=== PATIENT | female | born 1960 | race Caucasian/White ===

== ENCOUNTER 2019-04-04 16:04 | Observation (INO) | payer BC ==
--- NOTE | 2019-04-04 17:45 | ED ---
Abdominal Pain/Female - HPI Summary HPI Summary: Patient complains of right upper quadrant pain and nausea after eating. Patient has history of recurrent right upper quadrant after eating since January, however pain has been constant over the past 3 days. Sent by PCP to ED for further evaluation. Ultrasound 2 days ago positive for cholelithiasis. Has scheduled appointment for evaluation by surgery this coming Sunday. Denies fever, cough, sore throat, CP, V/D, change in urine, change in BM, vaginal symptoms. - History of Current Complaint Chief Complaint: EDAbdPain Stated Complaint: GALLSTONES PER PT Time Seen by Provider: 04/04/19 17:44 Hx Obtained From: Patient Onset/Duration: Gradual Onset, Lasting Days Timing: Constant Severity Initially: Moderate Severity Currently: Moderate Pain Intensity: 7 Pain Scale Used: 0-10 Numeric Location: Discrete At: RUQ Radiates to: Back Character: Sharp, Dull Aggravating Factor(s): Food Alleviating Factor(s): Nothing Associated Signs and Symptoms: Positive: Decreased Appetite, Nausea Allergies/Adverse Reactions: Allergies Allergy/AdvReac Type Severity Reaction Status Date / Time No Known Allergies Allergy Verified 04/04/19 16:11 Home Medications: Home Medications Citalopram TAB* [CeleXA TAB*] 40 mg PO DAILY 04/04/19 [History Confirmed ] Omeprazole CAP (NF) [Prilosec CAP* 20 MG] 20 mg PO DAILY 04/04/19 [History Confirmed 04/04/19] PMH/Surg Hx/FS Hx/Imm Hx Endocrine/Hematology History: Denies: Hx Diabetes Cardiovascular History: Denies: Hx Hypertension, Hx Pacemaker/ICD History: Denies: Hx Renal Disease Musculoskeletal History: Denies: Hx Rheumatoid Arthritis, Hx Osteoporosis Sensory History: Denies: Hx Hearing Aid Opthamlomology History: Denies: Hx Legally Blind EENT History: Denies: Hx Deafness Neurological History: Denies: Hx Dementia Psychiatric History: Reports: Hx Panic Disorder - Cancer History Hx Chemotherapy: No Hx Radiation Therapy: No Infectious Disease History: No Infectious Disease History: Denies: Traveled Outside the [place] in Last 30 Days - Family History Known Family History: Positive: Non-Contributory - Social History Alcohol Use: Rare Substance Use Type: Reports: None Smoking Status (MU): Never Smoked Tobacco Review of Systems Constitutional: Negative Eyes: Negative ENT: Negative Cardiovascular: Negative Respiratory: Negative Positive: Abdominal Pain, Nausea Genitourinary: Negative Musculoskeletal: Negative Skin: Negative Neurological: Negative Psychological: Normal All Other Systems Reviewed And Are Negative: Yes Physical Exam - Summary Physical Exam Summary: Positive Prado's. Abdominal exam otherwise unremarkable. Triage Information Reviewed: Yes Vital Signs On Initial Exam: Initial Vitals Temp Pulse Resp BP Pulse Ox 98.2 F 88 18 144/79 95 04/04/19 16:08 04/04/19 16:08 04/04/19 16:08 04/04/19 16:08 04/04/19 16:08 Vital Signs Reviewed: Yes Appearance: Positive: Well-Appearing Skin: Positive: Warm Head/Face: Positive: Normal Head/Face Inspection Eyes: Positive: Normal Neck: Positive: Supple Respiratory/Lung Sounds: Positive: Clear to Auscultation Cardiovascular: Positive: Normal Abdomen Description: Positive: Other: Musculoskeletal: Positive: Normal Neurological: Positive: Normal Psychiatric: Positive: Normal AVPU Assessment: Alert - [place] Coma Scale Best Eye Response: 4 - Spontaneous Best Motor Response: 6 - Obeys Commands Best Verbal Response: 5 - Oriented Coma Scale Total: 15 Procedures - Sedation Patient Received Moderate/Deep Sedation with Procedure: No Diagnostics - Vital Signs Vital Signs Temp Pulse Resp BP Pulse Ox 04/04/19 16:08 98.2 F 88 18 144/79 95 - Laboratory Result Diagrams: 04/05/19 05:29 04/05/19 05:29 Lab Statement: Any lab studies that have been ordered have been reviewed, and results considered in the medical decision making process. Abdominal Pain Fem Course/Dx - Course Course Of Treatment: Patient complains of right upper quadrant pain and nausea after eating. Patient has history of recurrent right upper quadrant after eating since January, however pain has been constant over the past 3 days. Sent by PCP to ED for further evaluation. Ultrasound 2 days ago positive for cholelithiasis. Has scheduled appointment for evaluation by surgery this coming Sunday. Denies fever, cough, sore throat, CP, V/D, change in urine, change in BM, vaginal symptoms. Medical history is depression. Abdominal surgical history is none. Vital signs within normal limits. WBC 15.3. CRP 209. Total bili 1.1. Labs otherwise unremarkable. Ultrasound of gallbladder positive for cholecystitis. Patient evaluated and admitted by surgery Dr. Blakely - Diagnoses Provider Diagnoses: Cholecystitis Discharge ED - Sign-Out/Discharge Documenting (check all that apply): Patient Departure - Discharge Plan Condition: Stable Disposition: ADMITTED TO [facility] - Billing Disposition and Condition Condition: STABLE Disposition: Admitted to [facility] - Attestation Statements Provider Attestation: I was available for consult. This patient was seen by the [facility]. The patient was not presented to, seen by, or examined by me. Yakov Samuel MD
[2019-04-04] MEDS ORDERED: Morphine 4 MG/ML VIAL (1 ml) 4 MG/ML VIAL IV ONE (17:47)
[2019-04-04] MEDS ORDERED: NS 0.9% 1000 ML** 1,000 ML IV ONE (17:47)
[2019-04-04] MEDS ORDERED: Ondansetron INJ* 2 MG/ML VIAL IV ONE (17:47)
[2019-04-04 17:48] LABS: ABS Basophils 0.1 10^3/ul (0-0.2); ABS Eosinophils 0.3 10^3/ul (0-0.6); ABS Lymphocytes 1.3 10^3/ul (1.0-4.8); ABS Monocytes 1.3 10^3/ul (0-0.8); ABS Neutrophils 12.3 10^3/ul (1.5-7.7); Hematocrit 41 % (35-47); Hemoglobin 13.9 g/dL (12.0-16.0); Lymphocyte % 8.2 %; Mean Corpuscular HGB Conc 34 g/dL (31-36); Mean Corpuscular Hemoglobin 30 pg (27-31); Mean Corpuscular Volume 90 fL (80-97); Mean Platelet Volume 8.9 fL (7.4-10.4); Platelet Count 265 10^3/uL (150-450); Red Blood Count 4.57 10^6 /uL (3.70-4.87); Red Cell Distribution Width 14 % (10-15); White Blood Count 15.3 10^3/uL (3.5-10.8)
[2019-04-04 18:13] LABS: Albumin/Globulin Ratio 1.3 (1-3); BUN/Creatinine Ratio 20.5 (8-20); Calcium 9.4 mg/dL (8.6-10.3); EGFR African American 85.7 (>60); EGFR Non-African American 70.9 (>60); Globulin 3.1 g/dL (2-4); Potassium 4.4 mmol/L (3.5-5.0); Total Bilirubin 1.1 mg/dL (0.2-1.0); Total Protein 7.1 g/dL (6.4-8.9)
[2019-04-04 18:32] LABS: Urine Appearance Cloudy; Urine Bilirubin Negative (Negative); Urine Blood 1+ (Negative); Urine Color Yellow; Urine Glucose Negative (Negative); Urine Ketones Trace (Negative); Urine Nitrite Negative (Negative); Urine Protein Negative (Negative); Urine Specific Gravity 1.014 (1.010-1.030); Urine Urobilinogen Negative (Negative)
[2019-04-04 18:42] LABS: Urine Bacteria Absent (Absent); Urine Red Blood Cell Absent (Absent); Urine Squamous Epithelial Cell Present (Absent); Urine White Blood Cell Trace(0-5/hpf) (Absent)
[2019-04-04 20:01] LABS: C Reactive Protein 209.04 mg/L (<8.01)
--- NOTE | 2019-04-04 21:09 | HP ---
CC: Dr. Love Pompa; [facility] HISTORY AND PHYSICAL: DATE OF ADMISSION: 04/04/19. The patient was seen in the emergency room on 04/04/19. HISTORY OF PRESENT ILLNESS: I was contacted by the emergency room to evaluate Ms. Dickens, a 58- year-old female, who has recently been worked up for gallbladder disease, noted to have cholelithiasi s, who presented to the emergency room because of worsening right upper quadrant pain and nausea and fatigue. Repeat ultrasound as a workup in the emergency room showed cholelithiasis with gallbladder wall thickening up to 5 mm suggestive of cholecystitis. Labs were also done and the patient showed w rios count of 15.3 up from 9.6 earlier this week with an elevated CRP of 209. The patient states that she has had nausea with decreased appetite and fear of food for discomfort. She was placed on possibly an acid reducing agent this past week for her upper abdominal pain. She i s not sure of the name of it. She denies any fevers or chills. No change in bowel habits. No dysur ia, no dark colored urine. No light colored stools. PAST MEDICAL HISTORY: Anxiety. PAST SURGICAL HISTORY: None. MEDICATIONS: 1. Celexa. 2. Prilosec. ALLERGIES: No known drug allergies. FAMILY HISTORY: Noncontributory. SOCIAL HISTORY: She is a nonsmoker. She is a retired teacher. Lives with her significant other. REVIEW OF SYSTEMS: See above. No bleeding or clotting disorders. No endocrine disorders. PHYSICAL EXAMINATION GENERAL: She is alert and oriented x3, in no apparent distress. VITAL SIGNS: She is afebrile, 98.3. Blood pressure 122/76, heart rate 77. Her BMI is 35. HEENT: Normocephalic, atraumatic. Sclerae anicteric. Mucous membranes are moist. NECK: No lymphadenopathy. LUNGS: Clear to auscultation bilaterally. HEART: Not examined. ABDOMEN: Soft, obese, tender at the right upper quadrant. Positive Prado sign. Negative rebound. No hernias. No skin changes. No CVA tenderness. EXTREMITIES: Within normal limits. RECTAL: Not performed. DIAGNOSTIC STUDIES/LAB DATA: Labs reviewed and described mostly above with T bili is 1.1, which is mildly elevated and mildly elevated glucose of 111. Ultrasound read as above. IMPRESSION: Acute cholecystitis. RECOMMENDATIONS: Admission, IV fluids, antibiotics, n.p.o. status, and surgery for laparoscopic chol ecystectomy. I briefly described the procedure of laparoscopic cholecystectomy to her and her partne r, and we will look towards admission with possible surgery tomorrow or possibly Sunday with an oppor tunity to discharge for admission on Sunday to perform the surgery depending on how patient is doing. Antibiotics will be Zosyn and it will be started now and the patient will be admitted to the floor. [id number]/[facility] #: [id number]
[2019-04-04] MEDS ORDERED: ZOSYN 3.375 GM x ONE DOSE over 30 miuntes IVPB ×2 (21:30)
[2019-04-04] MEDS: NS 0.9% 1000 ML** 1,000 ML IV SCH (22:35)
[2019-04-05] MEDS: HYDROmorphone INJ1* 1 MG/ML SYRINGE IV SLOW PU PRN ×3 (01:56→09:48)
[2019-04-05] MEDS: Piperacillin/Tazobactam VIAL*) 3.375 GM in NS 0.9% 100 ML* 100 ML IVPB SCH ×3 (02:18→18:06)
[2019-04-05 05:58] LABS: ABS Basophils 0.1 10^3/ul (0-0.2); ABS Eosinophils 0.4 10^3/ul (0-0.6); ABS Lymphocytes 1.5 10^3/ul (1.0-4.8); ABS Monocytes 1.2 10^3/ul (0-0.8); ABS Neutrophils 9.6 10^3/ul (1.5-7.7); Eosinophil % 3.2 %; Hematocrit 37 % (35-47); Hemoglobin 12.5 g/dL (12.0-16.0); Lymphocyte % 11.9 %; Mean Corpuscular HGB Conc 34 g/dL (31-36); Mean Corpuscular Hemoglobin 31 pg (27-31); Mean Corpuscular Volume 91 fL (80-97); Platelet Count 232 10^3/uL (150-450); Red Blood Count 4.03 10^6 /uL (3.70-4.87); Red Cell Distribution Width 14 % (10-15); White Blood Count 12.7 10^3/uL (3.5-10.8)
[2019-04-05 06:11] LABS: ALT 17 U/L (7-52); AST 13 U/L (13-39); Albumin 3.4 g/dL (3.2-5.2); Albumin/Globulin Ratio 1.3 (1-3); Alkaline Phosphatase 60 U/L (34-104); Anion Gap 4 mmol/L (2-11); Blood Urea Nitrogen 16 mg/dL (6-24); C Reactive Protein 165.83 mg/L (<8.01); CO2 Carbon Dioxide 28 mmol/L (22-32); Calcium 8.5 mg/dL (8.6-10.3); Chloride 108 mmol/L (101-111); EGFR African American 84.6 (>60); EGFR Non-African American 69.9 (>60); Globulin 2.7 g/dL (2-4); Glucose 88 mg/dL (70-100); Potassium 4.4 mmol/L (3.5-5.0); Sodium 140 mmol/L (135-145); Total Protein 6.1 g/dL (6.4-8.9)
[2019-04-05] MEDS: NS 0.9% 1000 ML** 1,000 ML IV SCH ×2 (06:27→17:24)
--- NOTE | 2019-04-05 11:18 | PN ---
Progress Note - Progress Note Date of Service: 04/05/19 SOAP: Subjective: Pt seen and examined. continued abdo pain Objective: Temp Pulse Resp BP Pulse Ox 98.3 F 80 16 120/68 95 04/05/19 07:45 04/05/19 07:45 04/05/19 10:53 04/05/19 07:45 04/05/19 07:45 lungs clear b/l abdo: soft/ ND/ tender Pos [place] ext wnl labs noted TB nl Assessment: Acute cholecystitis Plan: Laparoscopic cholecystectomy R/B/A discussed in the usual fashion and pt willing to proceed. cont abx
[2019-04-05] MEDS ORDERED: Sugammadex * 500 MG/5 ML VIAL IV PUSH ONE (11:39)
[2019-04-05] MEDS ORDERED: Dexamethasone IV* 4 MG/ML 1 ML (4 MG) ONE (11:39)
[2019-04-05] MEDS ORDERED: Ketorolac INJ* 30 MG/ML 1 ML VIAL ONE (11:39)
[2019-04-05] MEDS ORDERED: Propofol* 10 MG/ML 20 ML BTL ONE ×2 (11:39→12:58)
[2019-04-05] MEDS ORDERED: Lidocaine 2% PF * 5 ML VIAL ONE (11:40)
[2019-04-05] MEDS ORDERED: Acetaminophen IV 1GM/100ML * 100 ML ONE (11:40)
[2019-04-05] MEDS ORDERED: Propofol* 500 MG/50 ML BTL ONE (11:40)
[2019-04-05] MEDS ORDERED: Rocuronium* 10 MG/ML VIAL ONE (11:42)
[2019-04-05] MEDS ORDERED: Bupivacaine 0.25% EPI 200,000* 30 ML SDV ONE (12:29)
[2019-04-05] MEDS ORDERED: HYDROmorphone INJ1* 1 MG/ML SYRINGE ONE ×2 (12:50→15:39)
[2019-04-05] MEDS ORDERED: Ondansetron INJ* 2 MG/ML VIAL IV PRN (13:06)
[2019-04-05] MEDS ORDERED: Naloxone* 0.4 MG/ML 1 ML VIAL IV PRN (13:06)
[2019-04-05] MEDS ORDERED: DiMENhydriNATE IV* 50 MG/ML VIAL IV PUSH PRN (13:06)
--- NOTE | 2019-04-05 13:32 | OP ---
Operative Report - Blank - Operative Report Date of Operation: 04/05/19 Note: Pre-OP Diagnoses: acute cholecystitis Post-op Diagnosis: same Procedure: Laparoscopic cholecystectomy Surgeon: Zora Duke: EWA Anethesia: EWA EBL: 50cc IVF: 1200ccLR Specimen: gallbladder Drains: none
[2019-04-05] MEDS ORDERED: Ondansetron INJ* 2 MG/ML VIAL ONE (14:26)
[2019-04-05] MEDS ORDERED: oxyCODONE TAB* 5 MG TAB PO ONE (15:22)
[2019-04-05] MEDS ORDERED: oxyCODONE TAB* 5 MG TAB ONE (15:27)
[2019-04-05] MEDS: HYDROmorphone INJ1* 1 MG/ML SYRINGE IV PRN ×2 (15:41→16:23)
--- NOTE | 2019-04-05 20:33 | OP ---
CC: Dr Love Pompa; [facility]. OPERATIVE REPORT: DATE OF OPERATION: 04/05/19 DATE OF : 62 SURGEON: Vladimir Blakely MD ASSOCIATION EXECUTIVE: None. ANESTHESIA: General. PRE-OP DIAGNOSIS: Acute cholecystitis. POST-OP DIAGNOSIS: Acute cholecystitis. OPERATIVE PROCEDURE: Laparoscopic cholecystectomy. ESTIMATED BLOOD LOSS: Approximately 50 cc. IV FLUIDS: Crystalloid fluid given 1200. SPECIMEN: Gallbladder, gangrenous. DRAINS: None. DESCRIPTION OF PROCEDURE: The patient was identified in the preoperative area, marked, consent was s igned. She was taken to the operating room and placed on the operating room table in the supine posi tion. The patient was already on antibiotics. General anesthesia was delivered. Sequential devices were placed on bilateral lower extremities. The patient's abdomen was prepped and draped in a stand cory surgical fashion and time-out was performed. Floor of the umbilicus was elevated anteriorly and a Veress needle inserted into the abdominal cavity , which was then allowed to insufflate to a pressure of 15 mmHg. The patient tolerated insufflation well. A 12 mm optical trocar was then placed periumbilically and the Veress needle was removed. Rev iew of the abdomen showed no bleeding. No free fluid. Omentum was attached to what appeared to be t he gallbladder. We then placed a 5 mm in the subxiphoid area which was later upsized to a 12 mm troc ar and two 5 mm along the right costal margin. Table was repositioned and sharp and blunt dissection was carried out to isolate the fundus of the ga llbladder. This was not able to be grasped and for this reason an aspiration needle was placed and a pproximately 15 cc of thick bile were removed. This gave us an opportunity to grasp and lift it over the liver and we continued with our dissection of the lesser omental fat that was connected to do thi s and this was taken down with both blunt and sharp dissection until we could see the infundibular re gion of the gallbladder We isolated the cystic duct as well as the cystic artery. The artery was doubly ligated and the cyst ic duct was doubly clipped and ligated as well. The gallbladder was then removed from the liver bed and placed in an endoscopic retrieval bag. Reviewed cystic duct stump, cystic artery stump, which showed no bleeding or bile. We did suction irr igation for approximately 2-1/2 L of warm saline until the effluent was clear as we did enter into th e gallbladder during the dissection. The table was repositioned back to neutral, the gallbladder was removed in the endoscopic retrieval bag through the subxiphoid port after dilating this up and was p assed off as specimen. We then removed the periumbilical port site and closed this up at the fascia with an 0 Vicryl suture using a Weck device. Abdomen was allowed to collapse, trocars removed under direct vision and all 4 skin incisions were reapproximated with 4-0 Monocryl subcuticular sutures. [id number]/[facility] #: [id number]
[2019-04-06] MEDS: oxyCODONE/Acetamin 5/325 MG* TAB PO PRN ×2 (00:34→07:39)
[2019-04-06] MEDS: NS 0.9% 1000 ML** 1,000 ML IV SCH ×2 (00:35→08:15)
[2019-04-06] MEDS: Piperacillin/Tazobactam VIAL*) 3.375 GM in NS 0.9% 100 ML* 100 ML IVPB SCH ×2 (01:54→09:58)
[2019-04-06 08:31] VITALS: BP 123/65
--- NOTE | 2019-04-06 11:38 | DS ---
CC: [facility]; Dr. Love Pompa * DISCHARGE SUMMARY: DATE OF ADMISSION: DATE OF DISCHARGE: 04/06/19 PRIMARY CARE DOCTOR: Dr. Love Pompa. HOSPITAL COURSE: Ms. Dickens is a 58-year-old female who was admitted with acute cholecystitis. Please see H and P for details. She was observed and started on antibiotics, and by hospital day 2, decision was made to take the patient to the operating room for a laparoscopic cholecystectomy. Please see operative report for details. In the postoperative period, the patient continued to have discomfort that required IV narcotics. I had initially intended to discharge her from the PACU ; however, pain control was an issue, and for this reason, we kept her. Additionally, the patient did have gangrenous gallbladder and I felt more comfortable keeping her in the overnight period. PHYSICAL EXAMINATION: Postoperative day 1, the patient was evaluated. On 04/06, day of discharge, she was alert and oriented x3, in no apparent distress. Sclerae anicteric. Lungs: Clear to auscultation bilaterally. Abdomen: Soft, nondistended. Tender at the incision sites, which were clean, dry, and intact. Extremities within normal limits. IMPRESSION: Postoperative day 1, laparoscopic cholecystectomy for gangrenous gallbladder. PLAN: Discharged home. Follow up in the office. Prescription was sent for narcotics. The patient will restart her preoperative medications. DISCHARGE CONDITION: She will be discharged home in stable condition. [id number]/[facility] #: [id number] MTDD
== END 2019-04-06 11:17 | disposition home or self-care (01) ==
LOC: ED 16:04 → MEDTELE 20:31 → INTOOBSV 20:31 → SSU 21:40
PROVIDERS: ADMIT Surgery; ATTEND Surgery
DX: K81.0 Acute cholecystitis (principal); R53.83 Other fatigue; Z79.899 Other long term (current) drug therapy
CPT/HCPCS: 36415; 76705; 80053; 81003; 81015; 83605; 83690; 85025; 86140; 87086; 88304; 96365; 96366; 96375; 96376; 99283; A9270-GY; G0378; J1100; J1170; J1885; J2270; J2405; J2543; J2704